=== PATIENT | male | born 1960 | race Caucasian/White ===

== ENCOUNTER 2017-09-29 18:42 | Inpatient (IN) | payer BC ==
[~2017-09-29] VITALS: Ht 172.7 cm; Wt 80.6 kg
[2017-09-29] VITALS (10 sets, daily range): BP systolic 119–192; BP diastolic 72–94; PULSE 102–120; RESP 18–24; TEMP 101.2–103.1; O2SAT 92–98
[~2017-09-29 18:42] MED LIST: AEROMIS4 INH; ALBU8I INH; BENZ100 PO; GUAI1LIQ PO; LEVA750T9 PO; PRED1TAB PO; ZITH250T PO
--- NOTE | 2017-09-29 19:31 | PD ---
HPI Chief Complaint: Respiratory Symptoms Time Seen by Provider: 19:25 Travel History International Travel<30 days: No Contact w/Intl Traveler<30days: No Traveled to known affect area: No History of Present Illness HPI The patient is a 56-year-old male who has had a fever and a cough for 24 hours. He went to an urgent care center and they got an x-ray and stated it was pneumonia and he was told to go the emergency department. The reason he was told to go the emergency department was because his oxygenation was "going up and down". He denies any chest pain and has slight shortness of breath. Despite having insurance, he has no primary care physician. He does smoke one pack a day. According to the , the patient was confused earlier today, possibly delirious. PFSH Past Medical History Cardiac Catheterization: Yes Cardiovascular Problems: Yes ([place]) High Cholesterol: Yes Chest Pain: Yes Diminished Hearing: No Hypertension: Yes (takes no meds) Immunizations Current: Yes Myocardial Infarction: Yes (2010-ANGIOPLASTY) Sleep Apnea: Yes Social History Alcohol Use: Yes (VERY RARE) Tobacco Use: Yes (CIGARETTES, 1 PPD X 34 YEARS) Substance Use: No Allergies-Medications (Allergen,Severity, Reaction): Coded Allergies: No Known Allergies (Verified Adverse Reaction, Unknown, 09/29/17) Reported Meds & Prescriptions Reported Meds & Active Scripts Active Review of Systems Except as stated in HPI: all other systems reviewed are Neg Physical Exam Narrative GENERAL: The patient is alert, oriented 3 in slight respiratory distress. His temperature is 102.7 with heart rate of 1 awake and respirations of 24 and oximetry 95% on room air. When I see the patient he has 90% room air oximetry. SKIN: Focused skin assessment warm/dry. HEAD: Atraumatic. Normocephalic. EYES: Pupils equal and round. No scleral icterus. No injection or drainage. ENT: No nasal bleeding or discharge. Mucous membranes pink and moist. NECK: Trachea midline. No JVD. CARDIOVASCULAR: Regular rate and rhythm. No murmur appreciated. RESPIRATORY: No accessory muscle use. Diminished breath sounds are present bilaterally and a few rhonchi on expiration are present. Breath sounds equal bilaterally. GASTROINTESTINAL: Abdomen soft, non-tender, nondistended. Hepatic and splenic margins not palpable. MUSCULOSKELETAL: No obvious deformities. No clubbing. No cyanosis. No edema. NEUROLOGICAL: Awake and alert. No obvious cranial nerve deficits. Motor grossly within normal limits. Normal speech. PSYCHIATRIC: Appropriate mood and affect; insight and judgment normal. Data Data Last Documented VS Vital Signs Date Time Temp Pulse Resp B/P (MAP) Pulse Ox O2 Delivery O2 Flow Rate FiO2 09/29/17 20:46 113 20 191/94 (126) 98 Nasal Cannula 2.00 09/29/17 20:36 103.1 Orders Orders Sepsis Workup Initiated (09/29/17 ) Electrocardiogram (09/29/17 19:31) Complete Blood Count With Diff (09/29/17 19:31) Comprehensive Metabolic Panel (09/29/17 19:31) Lactic Acid Sepsis Protocol (09/29/17:31) Urinalysis - C+S If Indicated (09/29/17:31) Blood Culture (09/29/17:31) Chest, Pa & Lat (09/29/17:31) Arterial Blood Gas (Abg) (09/29/17:31) Blood Glucose (09/29/17:31) Ecg Monitoring (09/29/17:31) Iv Access Insert/Monitor (09/29/17:31) Oximetry (09/29/17:31) Oxygen Administration (09/29/17:31) Influenzae A/B Antigen (09/29/17 20:15) Acetaminophen (Tylenol) (09/29/17 20:30) Sodium Chlor 0.9% 1000 Ml Inj (Ns 1000 M (09/29/17 20:45) Ceftriaxone Inj (Rocephin Inj) (09/29/17 21:00) Azithromycin Inj (Zithromax Inj) (09/29/17 21:00) Labs Laboratory Tests Test 09/29/17 19:30 09/29/17 19:55 09/29/17 20:16 White Blood Count 9.2 TH/MM3 Red Blood Count 5.33 MIL/MM3 Hemoglobin 15.3 GM/DL Hematocrit 46.3 % Mean Corpuscular Volume 86.8 FL Mean Corpuscular Hemoglobin 28.7 PG Mean Corpuscular Hemoglobin Concent 33.0 % Red Cell Distribution Width 14.3 % Platelet Count 201 TH/MM3 Mean Platelet Volume 7.8 FL Neutrophils (%) (Auto) 82.5 % Lymphocytes (%) (Auto) 6.9 % Monocytes (%) (Auto) 8.0 % Eosinophils (%) (Auto) 0.5 % Basophils (%) (Auto) 2.1 % Neutrophils # (Auto) 7.7 TH/MM3 Lymphocytes # (Auto) 0.6 TH/MM3 Monocytes # (Auto) 0.7 TH/MM3 Eosinophils # (Auto) 0.0 TH/MM3 Basophils # (Auto) 0.2 TH/MM3 CBC Comment DIFF FINAL Differential Comment Blood Urea Nitrogen 21 MG/DL Creatinine 1.10 MG/DL Random Glucose 124 MG/DL Total Protein 7.3 GM/DL Albumin 3.7 GM/DL Calcium Level 8.6 MG/DL Alkaline Phosphatase 80 U/L Aspartate Amino Transf (AST/SGOT) 21 U/L Alanine Aminotransferase (ALT/SGPT) 48 U/L Total Bilirubin 0.4 MG/DL Sodium Level 135 MEQ/L Potassium Level 3.8 MEQ/L Chloride Level 101 MEQ/L Carbon Dioxide Level 26.2 MEQ/L Anion Gap 8 MEQ/L Estimat Glomerular Filtration Rate 69 ML/MIN Lactic Acid Level 1.4 mmol/L Blood Gas Puncture Site RT RADIAL Blood Gas Patient Temperature 98.6 Blood Gas HCO3 25 mmol/L Blood Gas Base Excess 0.9 mmol/L Blood Gas Oxygen Saturation 89 % Arterial Blood pH 7.41 Arterial Blood Partial Pressure CO2 40 mmHG Arterial Blood Partial Pressure O2 67 mmHG Arterial Blood Oxygen Content 18.5 Vol % Arterial Blood Carboxyhemoglobin 3.8 % Arterial Blood Methemoglobin 1.2 % Blood Gas Hemoglobin 14.8 G/DL Oxygen Delivery Device ROOM AIR Blood Gas Inspired Oxygen 21 % Urine Color YELLOW Urine Turbidity CLEAR Urine pH 5.5 Urine Specific [place] 1.025 Urine Protein NEG mg/dL Urine Glucose (UA) NEG mg/dL Urine Ketones NEG mg/dL Urine Occult Blood MOD Urine Nitrite NEG Urine Bilirubin NEG Urine Leukocyte Esterase NEG Urine RBC 0-3 /hpf Urine Squamous Epithelial Cells 0-5 /hpf Microscopic Urinalysis Comment CATH-CULT NOT IND MDM Medical Decision Making Medical Screen Exam Complete: Yes Emergency Medical Condition: Yes Medical Record Reviewed: Yes Interpretation(s) The CBC is normal except for 83% neutrophils. The blood gases on room air show pH 7.41, CO2 40, PO2 67 with O2 sat 89% and carboxyhemoglobin 3.8%. The chest x -ray shows no acute cardiopulmonary disease. The lactic acid is 1.4. The complete metabolic profile shows a sodium of 135, BUN 21, glucose 124 but is otherwise normal. The influenza a/B antigen is negative for flu a and flu B antigen. Differential Diagnosis Sepsis, pneumonia, hypoxemia, electrolyte disorder, viral upper respiratory infection, flu syndrome Narrative Course The patient does fit the sepsis criteria tachycardia, fever, tachypnea and confusion. The lactic acid is normal. The patient is hypoxemic with an O2 sat of 89%, this is going to be readily correctable with oxygen because his carboxyhemoglobin from the smoking is 3.8. Sepsis Criteria SIRS Criteria (2 or more): Temp > 100.9 or < 96.8, Heart rate over 90, RR > 20 or PaCO2 < 32 Criteria Outcome: Meets sepsis criteria Physician Communication Physician Communication I discussed the patient with Dr. Galvin, the patient will be admitted to her. Diagnosis Primary Impression: Sepsis Additional Impressions: Hypoxemia Tobacco abuse Admitting Information Admitting Physician Requests: Admit Miquel Leigh MD Sep 29, 2017 19:30
[2017-09-29 19:59] LABS: AUTOMATED NEUTROPHIL # 7.7 TH/MM3 (1.8-7.7); BASOPHIL # 0.2 TH/MM3 (0-0.2); BASOPHIL % 2.1 % (0.0-2.0); EOSINOPHIL % 0.5 % (0.0-4.0); HEMATOCRIT 46.3 % (39.0-51.0); LYMPH % 6.9 % (9.0-44.0); LYMPHOCYTE # 0.6 TH/MM3 (1.0-4.8); MEAN CELL VOLUME 86.8 FL (80.0-100.0); MEAN CORPUSCULAR HEMOGLOBIN 28.7 PG (27.0-34.0); NEUT % 82.5 % (16.0-70.0); PLATELET COUNT 201 TH/MM3 (150-450); RED BLOOD COUNT 5.33 MIL/MM3 (4.50-5.90); RED CELL DISTRIBUTION WIDTH 14.3 % (11.6-17.2); WHITE BLOOD COUNT 9.2 TH/MM3 (4.0-11.0)
[2017-09-29 20:00] LABS: HEMO FLAGS DIFF FINAL
--- NOTE | 2017-09-29 20:01 | RADRPT ---
EXAM DATE/TIME: 09/29/2017 19:40 [facility] COMPARISON: CHEST PA & LAT, July 08, 2015, 10:32. INDICATIONS : Cough, chest congestion for 1 week MEDICAL HISTORY : None. SURGICAL HISTORY : None. ENCOUNTER: Initial ACUITY: 1 week PAIN SCORE: 3/10 LOCATION: Bilateral chest FINDINGS: PA and lateral views of the chest demonstrate the lungs to be symmetrically aerated without evidence of mass, infiltrate or effusion. The cardiomediastinal contours are unremarkable. Osseous structure s are intact. CONCLUSION: No acute cardiopulmonary disease. Felipe Nathan MD on September 29, 2017 at 19:58 Board Certified Radiologist. This report was verified electronically.
[2017-09-29 20:09] LABS: CHLORIDE 101 MEQ/L (98-107); POTASSIUM 3.8 MEQ/L (3.5-5.1); SODIUM (NA) 135 MEQ/L (136-145)
[2017-09-29 20:12] LABS: BLOOD GAS BASE EXCESS 0.9 mmol/L (-2-2); BLOOD GAS CARBOXYHEMOGLOBIN 3.8 % (0-4); BLOOD GAS HCO3 25 mmol/L (22-26); BLOOD GAS METHEMOGLOBIN 1.2 % (0-2); BLOOD GAS O2 HGB SATURATION 89 % (90-100); BLOOD GAS OXYGEN CONTENT 18.5 Vol % (12.0-20.0); BLOOD GAS PCO2 40 mmHG (38-42); BLOOD GAS PO2 67 mmHG (61-120); BLOOD GAS TOTAL HGB 14.8 G/DL (12.0-16.0); TEMP CORR TO 98.6
[2017-09-29 20:13] LABS: ANION GAP 8 MEQ/L (5-15); BICARBONATE 26.2 MEQ/L (21.0-32.0); BLOOD UREA NITROGEN 21 MG/DL (7-18)
[2017-09-29 20:13] LABS: CRITICAL VALUE YES; DRAW SITE RT RADIAL; FIO2 21 %; NUMBER OF ARTERIAL PUNCTURES 1; OXYGEN DEVICE ROOM AIR; STAT YES; ULNAR PULSE PRESENT
[2017-09-29 20:16] LABS: ALT (GPT) 48 U/L (12-78); AST (GOT) 21 U/L (15-37); GLOMERULAR FILTRATION RATE 69 ML/MIN (>89)
[2017-09-29 20:18] LABS: TOTAL BILIRUBIN ADULT 0.4 MG/DL (0.2-1.0)
[2017-09-29 20:19] LABS: ALKALINE PHOSPHATASE 80 U/L (45-117)
[2017-09-29 20:20] LABS: BLOOD, URINE MOD (NEG); GLUCOSE,URINE NEG (NEG); KETONE, URINE NEG (NEG); NITRITE,URINE NEG (NEG); PH, URINE 5.5 (5.0-8.5)
[2017-09-29 20:28] LABS: URINE COLOR YELLOW (YELLW/STRAW)
[2017-09-29 20:29] LABS: COMMENT (UR) CATH-CULT NOT IND; CULTURE IF INDICATED CATH CULTURE NOT IND; RBC, URINE 0-3 /hpf (0-3); SQUAMOUS EPITHELIAL CELL URINE 0-5 /hpf (0-5)
[2017-09-29] MEDS ORDERED: ACETAMINOPHEN 500 MG CPLT PO ONE (20:30)
[2017-09-29] MEDS: SODIUM CHLOR 0.9% 1000 ML INJ 1,000 ML IV SCH ×3 (20:41→21:49)
[2017-09-29] MEDS ORDERED: RESP: ALBUTEROL 2.5 MG/IPRATROPIUM 0.5 MG NEB (PRN) INH (21:00)
[2017-09-29] MEDS ORDERED: SODIUM CHLORIDE 0.9% FLUSH 10 ML FLUSH IV FLUSH PRN (21:00)
[2017-09-29] MEDS ORDERED: cefTRIAXone INJ 1,000 MG in SODIUM CHLORIDE 0.9% INJ 100 ML IV ONE (21:00)
[2017-09-29] MEDS ORDERED: AZITHROMYCIN INJ 500 MG in SODIUM CHLOR 0.9% 250 ML INJ 250 ML IV ONE (21:00)
[2017-09-29] MEDS: SODIUM CHLORIDE 0.9% FLUSH 10 ML FLUSH IV FLUSH SCH (21:21)
[2017-09-29] MEDS: HEPARIN SODIUM - SQ 10,000 UNITS/ML VIAL SQ SCH (21:39)
[2017-09-30] VITALS (21 sets, daily range): BP systolic 126–184; BP diastolic 72–89; PULSE 88–106; RESP 16–25; TEMP 98–102.3; O2SAT 93–97
[2017-09-30] MEDS: ACETAMINOPHEN 500 MG CPLT PO PRN ×2 (02:24→09:21)
[2017-09-30] MEDS: HEPARIN SODIUM - SQ 10,000 UNITS/ML VIAL SQ SCH ×3 (05:01→22:03)
[2017-09-30 06:13] LABS: AUTOMATED NEUTROPHIL # 7.4 TH/MM3 (1.8-7.7); BASOPHIL # 0.2 TH/MM3 (0-0.2); BASOPHIL % 1.6 % (0.0-2.0); EOSINOPHIL % 0.1 % (0.0-4.0); HEMATOCRIT 39.5 % (39.0-51.0); LYMPHOCYTE # 1.5 TH/MM3 (1.0-4.8); MEAN CELL VOLUME 84.6 FL (80.0-100.0); MEAN CORPUSCULAR HGB CONC 34.2 % (32.0-36.0); MONO % 6.4 % (0.0-8.0); NEUT % 76.9 % (16.0-70.0); PLATELET COUNT 154 TH/MM3 (150-450); RED BLOOD COUNT 4.67 MIL/MM3 (4.50-5.90); RED CELL DISTRIBUTION WIDTH 13.7 % (11.6-17.2); WHITE BLOOD COUNT 9.7 TH/MM3 (4.0-11.0)
[2017-09-30 06:17] LABS: HEMO FLAGS DIFF FINAL
[2017-09-30 06:23] LABS: POTASSIUM 3.7 MEQ/L (3.5-5.1)
[2017-09-30 06:26] LABS: BICARBONATE 25.7 MEQ/L (21.0-32.0)
[2017-09-30] MEDS ORDERED: RESP: ALBUTEROL 2.5 MG/IPRATROPIUM 0.5 MG NEB (PRN) INH (07:15)
[2017-09-30] MEDS: AZITHROMYCIN 250 MG TAB PO SCH (07:48)
[2017-09-30] MEDS: RESP: ALBUTEROL 2.5 MG/IPRATROPIUM 0.5 MG NEB (SCH) NEB ×4 (07:51→19:30)
[2017-09-30] MEDS ORDERED: ONDANSETRON HCL 4 MG/2 ML VIAL IV PUSH PRN (08:15)
--- NOTE | 2017-09-30 08:53 | HHI.HP ---
[facility] No Primary Care Physician Admission Diagnosis sepsis, hypoxemia, tobacco abuse Diagnoses: (1) Systemic inflammatory response syndrome Diagnosis: Principal (2) Febrile illness Diagnosis: Principal (3) Hypoxemia Diagnosis: Principal (4) Tobacco abuse Diagnosis: Secondary Chief Complaint: Shortness of breath and cough Travel History International Travel<30 Days: No Contact w/Intl Traveler <30 Da: [place] Country Traveled to: [place] Traveled to Known Affected Are: No Sepsis Criteria SIRS Criteria (2 or more): Temp > 100.9 or < 96.8, Heart rate over 90 History of Present Illness Written by Garrett Leigh, acting as scribe for Dr. Sheffield on 09/30/17 at 08 :52. 56 year-old male with known history of noncompliance he was treatment for hypertension, hyperlipidemia, obstructive sleep apnea who presented to hospital because of shortness of breath and dyspnea. Patient states that his symptoms started on Wednesday of this week. He states that he went to [place] for 6 days and just got back on Wednesday. On Wednesday he started having a nonproductive cough which progressively got worse. He was having increased dyspnea on exertion, shortness of breath. He did notice some chills but did not indicate that he had any fever. The patient went to an urgent care center for evaluation and was told that he had a chest x-ray which showed pneumonia and hypoxia so they referred him to the ER for evaluation. Patient had workup done in the emergency department with chest x-ray which did not indicate any acute abnormality. Patient did have febrile illness with temperature 102.7. Patient has had a MAXIMUM TEMPERATURE of the 103.1. On presentation the patient did have mild hypoxia with O2 saturation of 92%. Arterial blood gas was performed which did indicate O2 saturation of 89%. Patient did have findings to indicate systemic inflammatory response syndrome and hypoxia and is recommended patient be admitted for further evaluation and management. The patient does continue to smoke one pack a cigarettes a day since he was 15 years old. He is supposed to use a CPAP machine however he does not use it because of the difficulty of operation. He does have history of hypertension, hyperlipidemia and myocardial infarction in which she does not take any medications for. 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 Denies any alcohol or illicit drugs Physical Exam Vital Signs Vital Signs Date Time Temp Pulse Resp B/P (MAP) Pulse Ox O2 Delivery O2 Flow Rate FiO2 09/30/17 08:30 104 20 94 09/30/17 08:15 102 23 93 09/30/17 08:00 101.7 100 25 172/86 (114) 93 09/30/17 08:00 106 09/30/17 07:52 95 Nasal Cannula 2.00 09/30/17 06:00 91 09/30/17 05:00 92 18 165/75 (105) 96 09/30/17 04:00 92 09/30/17 04:00 98.0 96 19 137/76 (96) 95 09/30/17 03:26 102 16 162/73 (102) 96 09/30/17 02:00 104 09/30/17 02:00 102.3 104 24 184/89 (120) 96 09/30/17 02:00 104 24 184/89 (120) 96 09/30/17 01:00 104 24 160/88 (112) 96 09/30/17 00:00 100.2 96 19 138/76 (96) 96 09/30/17 00:00 96 19 138/76 (96) 96 09/30/17 00:00 106 09/29/17 23:00 102 21 119/72 (88) 95 09/29/17 23:00 104 09/29/17 22:30 103.0 104 22 155/77 (103) 96 09/29/17 22:23 09/29/17 22:02 110 18 191/87 (121) 98 Nasal Cannula 2.00 09/29/17 21:18 101.2 110 18 167/87 (113) 98 Nasal Cannula 2.00 09/29/17 20:46 101.6 113 20 191/94 (126) 98 Nasal Cannula 2.00 09/29/17 20:46 98 Nasal Cannula 2.00 09/29/17 20:36 103.1 118 20 94 Nasal Cannula 2.00 09/29/17 20:23 95 Nasal Cannula 2.00 09/29/17 20:15 108 20 192/87 (122) 92 Nasal Cannula 2.00 09/29/17 19:30 102.9 120 20 178/88 (118) 93 Room Air 09/29/17 19:30 20 93 Room Air 09/29/17 19:30 20 93 Room Air 09/29/17 19:25 102.7 108 24 180/88 (118) 95 09/29/17 18:47 102.7 108 24 180/88 (118) 95 Room Air Physical Exam GENERAL: Well-developed, well-nourished, in no acute distress. alert and orientated HEENT: Head is normocephalic without any lesions or masses noted. Facial features are symmetric. Eyes: Pupils equal round reactive to light. Extraocular muscles are intact. Conjunctivae were clear. Oropharyngeal: Pharynx without any erythema edema. Tongue is midline without deviation. Buccal mucosa is moist without any masses or lesions NECK: Supple without any masses. Trachea midline no deviation. No JVD, no bruits are appreciated CARDIAC: Regular rhythm, regular rate. S1/S2 are heard. No murmurs gallops or rubs. LUNGS: Clear to auscultation bilaterally. Wheeze noted throughout all lung fischer. No rhonchi or rales. No use of accessory muscles on inspiration or expiration. ABDOMEN: Soft, nontender. Nondistended. Bowel sounds heard in all 4 quadrants. No organomegaly or masses. Negative rebound, negative guarding EXTREMITIES: No edema, pulses are equal bilaterally. No cyanosis or clubbing NEUROLOGY: Mood and affect appear appropriate. Cranial nerves II through XII grossly intact. Muscle strength 5/5 in upper and lower extremities bilaterally. Deep tendon reflexes are 2+ in upper and lower extremities bilaterally. Laboratory Laboratory Tests Test 09/29/17 19:30 09/29/17 19:55 09/29/17 20:16 09/30/17 05:45 White Blood Count 9.2 9.7 Red Blood Count 5.33 4.67 Hemoglobin 15.3 13.5 Hematocrit 46.3 39.5 Mean Corpuscular Volume 86.8 84.6 Mean Corpuscular Hemoglobin 28.7 29.0 Mean Corpuscular Hemoglobin Concent 33.0 34.2 Red Cell Distribution Width 14.3 13.7 Platelet Count 201 154 Mean Platelet Volume 7.8 7.7 Neutrophils (%) (Auto) 82.5 76.9 Lymphocytes (%) (Auto) 6.9 15.0 Monocytes (%) (Auto) 8.0 6.4 Eosinophils (%) (Auto) 0.5 0.1 Basophils (%) (Auto) 2.1 1.6 Neutrophils # (Auto) 7.7 7.4 Lymphocytes # (Auto) 0.6 1.5 Monocytes # (Auto) 0.7 0.6 Eosinophils # (Auto) 0.0 0.0 Basophils # (Auto) 0.2 0.2 CBC Comment DIFF FINAL DIFF FINAL Differential Comment Blood Urea Nitrogen 21 11 Creatinine 1.10 0.70 Random Glucose 124 107 Total Protein 7.3 Albumin 3.7 Calcium Level 8.6 7.8 Alkaline Phosphatase 80 Aspartate Amino Transf (AST/SGOT) 21 Alanine Aminotransferase (ALT/SGPT) 48 Total Bilirubin 0.4 Sodium Level 135 136 Potassium Level 3.8 3.7 Chloride Level 101 103 Carbon Dioxide Level 26.2 25.7 Anion Gap 8 7 Estimat Glomerular Filtration Rate 69 117 Lactic Acid Level 1.4 Blood Gas Puncture Site RT RADIAL Blood Gas Patient Temperature 98.6 Blood Gas HCO3 25 Blood Gas Base Excess 0.9 Blood Gas Oxygen Saturation 89 Arterial Blood pH 7.41 Arterial Blood Partial Pressure CO2 40 Arterial Blood Partial Pressure O2 67 Arterial Blood Oxygen Content 18.5 Arterial Blood Carboxyhemoglobin 3.8 Arterial Blood Methemoglobin 1.2 Blood Gas Hemoglobin 14.8 Oxygen Delivery Device ROOM AIR Blood Gas Inspired Oxygen 21 Urine Color YELLOW Urine Turbidity CLEAR Urine pH 5.5 Urine Specific [place] 1.025 Urine Protein NEG Urine Glucose (UA) NEG Urine Ketones NEG Urine Occult Blood MOD Urine Nitrite NEG Urine Bilirubin NEG Urine Leukocyte Esterase NEG Urine RBC 0-3 Urine Squamous Epithelial Cells 0-5 Microscopic Urinalysis Comment CATH-CULT NOT IND Date/Time Source Procedure Growth Status 09/29/17 19:47 Blood Peripheral Aerobic Blood Culture Pending Received 09/29/17 19:47 Blood Peripheral Anaerobic Blood Culture Pending Received 09/29/17 20:22 Nasal Washing Influenza Types A,B Antigen (ARELI) - Final NEGATIVE FOR FLU A AND B ANTIGEN.... Complete Result Diagram: 09/30/17 0545 09/30/[address] Angiography 09/30/17 0000 Signed Impressions: Service Date/Time: September 09:22 - CONCLUSION: 1. The study is negative for pulmonary embolism. 2. Multifocal opacities in the left lung including a 5 mm nodule and several enlarged middle mediastinal lymph nodes is nonspecific with regard to infectious or malignant origin. 3. 2.7 cm mass right thyroid. Felipe Nathan MD Chest X-Ray 09/29/17 193 Signed Impressions: Service Date/Time: Friday, September 29, 2017 19:40 - CONCLUSION: No acute cardiopulmonary disease. Felipe Nathan MD Septic Shock Reassessment Heart: Other (sinus tachycardia) Lungs: Other (wheeze noted throughout) Skin: Warm, [place] Peripheral Pulses: Bounding Right Radial Bounding Left Radial Capillary Refill: Brisk, <2 seconds Caprini VTE Risk Assessment Caprini VTE Risk Assessment: Mod/High Risk (score >= 2) Caprini Risk Assessment Model Point Value = 1 Point Value = 2 Point Value = 3 Point Value = 5 Age 41-60 Minor surgery BMI > 25 kg/m2 Swollen legs Varicose veins or History of unexplained or recurrent spontaneous Oral contraceptives or hormone replacement Sepsis (< 1 month) Serious lung disease, including pneumonia (< 1 month) Abnormal pulmonary function Acute myocardial infarction Congestive heart failure (< 1 month) History of inflammatory bowel disease Medical patient at bed rest Age 61-74 Arthroscopic surgery Major open surgery (> 45 min) Laparoscopic surgery (> 45 min) Malignancy Confined to bed (> 72 hours) Immobilizing plaster cast Central venous access Age >= 75 History of VTE Family history of VTE Factor V Leiden Prothrombin [id number] Lupus anticoagulant Anticardiolipin antibodies Elevated serum homocysteine Heparin-induced thrombocytopenia Other congenital or acquired thrombophilia Stroke (< 1 month) Elective arthroplasty Hip, pelvis, or leg fracture Acute spinal cord injury (< 1 month) Prophylaxis Regimen Total Risk Factor Score Risk Level Prophylaxis Regimen 0-1 Low Early ambulation 2 Moderate Order ONE of the following: *Sequential Compression Device (SCD) *Heparin 5000 units SQ BID 3-4 Higher Order ONE of the following medications: *Heparin 5000 units SQ TID *Enoxaparin/Lovenox 40 mg SQ daily (WT < 150 kg, CrCl > 30 mL/min) *Enoxaparin/Lovenox 30 mg SQ daily (WT < 150 kg, CrCl > 10-29 mL/min) *Enoxaparin/Lovenox 30 mg SQ BID (WT < 150 kg, CrCl > 30 mL/min) AND/OR *Sequential Compression Device (SCD) 5 or more Highest Order ONE of the following medications: *Heparin 5000 units SQ TID (Preferred with Epidurals) *Enoxaparin/Lovenox 40 mg SQ daily (WT < 150 kg, CrCl > 30 mL/min) *Enoxaparin/Lovenox 30 mg SQ daily (WT < 150 kg, CrCl > 10-29 mL/min) *Enoxaparin/Lovenox 30 mg SQ BID (WT < 150 kg, CrCl > 30 mL/min) AND *Sequential Compression Device (SCD) Assessment and Plan Problem List: (1) COPD with exacerbation ICD Code: J44.1 - Chronic obstructive pulmonary disease with (acute) exacerbation (2) Bronchitis ICD Code: J40 - Bronchitis, not specified as acute or chronic (3) Systemic inflammatory response syndrome ICD Code: R65.10 - Systemic inflammatory response syndrome (SIRS) of non- infectious origin without acute organ dysfunction Assessment and Plan 56-year-old man with Systemic inflammatory response syndrome Patient meets criteria with febrile illness, sinus tachycardia, no infectious source has been identified Likely secondary to chronic obstructive pulmonary disease Chest x-ray does not indicate any acute abnormality CT scan of the chest showed multifocal opacity's in the left lung and 5 mm nodule with several enlarged middle mediastinal lymph nodes. Will need outpatient follow-up when stabilized Influenza testing was negative Blood cultures are negative for 1 day D-dimer was positive, pulmonary angiogram does not indicate any pulmonary emboli Continue Rocephin and Zithromax Hypoxia, which is multifactorial with likely vital upper respiratory infection, chronic obstructive pulmonary disease, chronic tobacco use Continue O2 supplementation maintain O2 sats greater 92% Duo nebs every 4 hours and every 2 hours as needed Start Solu-Medrol 40 mg IV every 6 hours Patient will likely need outpatient pulmonary function test when not an acute exacerbation Robitussin-AC as needed Febrile illness Thus far workup does not indicate any acute bacterial infection Awaiting further studies with sputum culture, pneumococcal testing, Legionella testing Hypertension, untreated due to noncompliance Start lisinopril 5 mg daily Vasotec and clonidine as needed History of myocardial infarction, hyperlipidemia, untreated Start aspirin Obtain lipid panel DVT prevention Subcutaneous heparin This note was transcribed by misty Leigh. I, Dr. Daryl Sheffield personally performed the history, physical exam, and medical decision making; and confirmed the accuracy of the information in the transcribed note. Authenticated by Dr. Dayrl Sheffield on 09/30/17 at 08:52. Code Status Full code Discussed Condition With Patient Physician Certification 2 Midnight Certification Type: Admission for Inpatient Services Order for Inpatient Services The services are ordered in accordance with Medicare regulations or non- Medicare payer requirements, as applicable. In the case of services not specified as inpatient-only, they are appropriately provided as inpatient services in accordance with the 2-midnight benchmark. Estimated LOS (days): 3 days is the estimated time the patient will need to remain in the hospital, assuming treatment plan goals are met and no additional complications. Post-Hospital Plan: Not yet determined Garrett Leigh Sep 30, 2017 08:53 Daryl Sheffield MD Sep 30, 2017 08:53
[2017-09-30] MEDS: SODIUM CHLORIDE 0.9% FLUSH 10 ML FLUSH IV FLUSH SCH ×2 (09:00→21:00)
[2017-09-30] MEDS: SODIUM CHLOR 0.9% 1000 ML INJ 1,000 ML IV SCH ×3 (09:21→22:05)
[2017-09-30] MEDS ORDERED: IOHEXOL 350 MG/ML 10 ML VIAL (for RAD DIAG) IVCONTRAST ONE (09:39)
--- NOTE | 2017-09-30 09:51 | RADRPT ---
EXAM DATE/TIME: 09/30/2017 09:22 [facility] COMPARISON: No previous studies available for comparison. INDICATIONS : Shortness of breath with hypoxia and tachycardia. IV CONTRAST: 75 cc Omnipaque 350 (iohexol) IV RADIATION DOSE: 13.27 CTDIvol (mGy) MEDICAL HISTORY : Cardiovascular disease. Hypertension. SURGICAL HISTORY : None. ENCOUNTER: Initial ACUITY: 1 day PAIN SCALE: 0/10 LOCATION: chest TECHNIQUE: Volumetric scanning of the chest was performed using a pulmonary embolism protocol MIP images were re constructed. Using automated exposure control and adjustment of the mA and/or kV according to patien t size, radiation dose was kept as low as reasonably achievable to obtain optimal diagnostic quality images. DICOM format image data is available electronically for review and comparison. Follow-up recommendations for detected pulmonary nodules are based at a minimum on nodule size and pa tient risk factors according to Fleischner Society Guidelines. FINDINGS: PULMONARY ARTERIES: No filling defects are seen in the pulmonary arteries through the segmental level. LUNGS: There are multiple opacities in the left lung, the largest of which is located posterior medial pleur al surface measuring 1.3 cm (image #28). A 2nd area of opacity adjacent to the left anterior superio r mediastinum interface does contain some air bronchograms. There is a 5 mm nodule in the lower late ral left lung (image #59). No nodules or infiltrates seen in the right lung. PLEURAE: There is no pleural thickening or pleural effusion. MEDIASTINUM: Multiple prominent mediastinal nodes including lateral AP window (1.6 cm) and subcarinal region (1.8 cm). MISCELLANEOUS: Small hiatus hernia. 2.7 cm low-density mass in the right thyroid. CONCLUSION: 1. The study is negative for pulmonary embolism. 2. Multifocal opacities in the left lung including a 5 mm nodule and several enlarged middle mediasti nal lymph nodes is nonspecific with regard to infectious or malignant origin. 3. 2.7 cm mass right thyroid. Felipe Nathan MD on September 30, 2017 at 9:44 Board Certified Radiologist. This report was verified electronically.
--- NOTE | 2017-09-30 10:33 | EKG ---
Date Performed: 09/29/2017 Time Performed: 19:52:45 PTAGE: 56 years EKG: SINUS TACHYCARDIA WITH SHORT SD INTERVAL POSSIBLE LEFT ATRIAL ENLARGEMENT INCOMPLETE RIGHT BUNDLE BRANCH BLOCK NONSPECIFIC T-WAVE ABNORMALITY ABNORMAL RHYTHM ECG PREVIOUS TRACING : 12/12/2010 05.40 DOCTOR: Bienvenido Marcus Interpretating Date/Time 09/30/2017 10:32:22
[2017-09-30] MEDS ORDERED: cloNIDine HCL 0.1 MG TAB PO PRN (10:45)
[2017-09-30] MEDS ORDERED: ENALAPRILAT 1.25 MG/ML VIAL IV PUSH PRN (10:45)
[2017-09-30] MEDS: LISINOPRIL 5 MG TAB PO SCH (11:00)
[2017-09-30] MEDS ORDERED: IBUPROFEN 600 MG TAB PO PRN (13:00)
[2017-09-30] MEDS: NICOTINE 21 MG/24 HR PATCH T-DERMAL SCH (13:28)
[2017-09-30] MEDS: methylPREDNISolone SOD SUCC 40 MG/1 ML VIAL IV PUSH SCH ×2 (13:30→17:05)
[2017-09-30] MEDS ORDERED: guaiFENesin/CODEINE SYRUP 200 MG/20 MG/10 ML CUP PO PRN (13:45)
[2017-09-30] MEDS ORDERED: cefTRIAXone INJ 1,000 MG in SODIUM CHLORIDE 0.9% INJ 100 ML IV SCH (21:00)
[2017-10-01] VITALS (8 sets, daily range): BP systolic 98–161; BP diastolic 64–87; PULSE 78–106; RESP 14–29; TEMP 97.1–98.4; O2SAT 93–96
[2017-10-01] MEDS: SODIUM CHLOR 0.9% 1000 ML INJ 1,000 ML IV SCH (00:35)
[2017-10-01] MEDS: methylPREDNISolone SOD SUCC 40 MG/1 ML VIAL IV PUSH SCH ×3 (05:50→12:52)
[2017-10-01] MEDS: HEPARIN SODIUM - SQ 10,000 UNITS/ML VIAL SQ SCH (05:50)
[2017-10-01] MEDS: RESP: ALBUTEROL 2.5 MG/IPRATROPIUM 0.5 MG NEB (SCH) NEB ×2 (07:38→11:19)
[2017-10-01 08:17] LABS: HDL CHOLESTEROL 34.7 MG/DL (40.0-60.0)
[2017-10-01] MEDS ORDERED: REMOVE OLD PATCH T-DERMAL SCH (09:00)
[2017-10-01] MEDS ORDERED: ASPIRIN EC 81 MG TABEC PO SCH (09:00)
[2017-10-01] MEDS: LISINOPRIL 5 MG TAB PO SCH (09:50)
[2017-10-01] MEDS: NICOTINE 21 MG/24 HR PATCH T-DERMAL SCH (09:50)
[2017-10-01] MEDS: AZITHROMYCIN 250 MG TAB PO SCH (09:54)
[2017-10-01] MEDS: SODIUM CHLORIDE 0.9% FLUSH 10 ML FLUSH IV FLUSH SCH (09:59)
[2017-10-01] MEDS ORDERED: INFLUENZA VIRUS VACCINE (QUADRIVALENT) 0.5 ML SYR IM ONE (10:00)
[2017-10-01] MEDS ORDERED: PNEUMOCOCCAL POLYVALENT INJ 25 MCG/0.5 ML SYR IM ONE (10:00)
--- NOTE | 2017-10-01 13:02 | HHI.PR ---
Subjective Remarks Follow-up febrile episode/SIRS/COPD exacerbation 10/01/17-patient seen and examined, reports significant improvement or shortness of breath and currently afebrile Objective Vitals Vital Signs Date Time Temp Pulse Resp B/P (MAP) Pulse Ox O2 Delivery O2 Flow Rate FiO2 10/01/17 12:00 98.3 94 29 161/85 (110) 95 10/01/17 10:00 100 20 145/76 (99) 94 10/01/17 08:15 98.4 92 18 157/87 (110) 94 10/01/17 08:00 106 10/01/17 07:38 93 Nasal Cannula 2.00 10/01/17 04:00 97.3 90 15 136/65 (88) 96 10/01/17 03:22 100 23 160/71 (100) 95 10/01/17 00:00 97.1 78 14 98/64 (75) 96 09/30/17 20:00 98.8 96 22 128/79 (95) 96 09/30/17 20:00 96 09/30/17 19:32 95 Nasal Cannula 2.00 09/30/17 16:00 98.8 88 19 127/76 (93) 97 I/O 09/30/17 09/30/17 09/30/17 10/01/17 10/01/17 10/01/17 07:00 15:00 23:00 07:00 15:00 23:00 Intake Total 460 ml 1281 ml 1918 ml 1208 ml 613 ml Output Total 850 ml 1700 ml 1800 ml Balance -390 ml 1281 ml 218 ml -592 ml 613 ml Intake Oral 460 ml IV Total 1281 ml 1918 ml 1208 ml 613 ml Output Urine Total 850 ml 1700 ml 1800 ml # Bowel Movements 0 Result Diagram: 09/30/17 0545 09/30/17 [address] Angiography 09/30/17 0000 Signed Impressions: Service Date/Time: September 09:22 - CONCLUSION: 1. The study is negative for pulmonary embolism. 2. Multifocal opacities in the left lung including a 5 mm nodule and several enlarged middle mediastinal lymph nodes is nonspecific with regard to infectious or malignant origin. 3. 2.7 cm mass right thyroid. Felipe Nathan MD Chest X-Ray 09/29/171930 Signed Impressions: Service Date/Time: Friday, September 29, 2017 19:40 - CONCLUSION: No acute cardiopulmonary disease. Felipe Nathan MD Objective Remarks GENERAL: NAD SKIN: Warm and dry. HEAD: Normocephalic. EYES: No scleral icterus. No injection or drainage. NECK: Supple, trachea midline. No JVD or lymphadenopathy. CARDIOVASCULAR: Regular rate and rhythm without murmurs, gallops, or rubs. RESPIRATORY: Breath sounds equal bilaterally. No accessory muscle use. GASTROINTESTINAL: Abdomen soft, non-tender, nondistended. MUSCULOSKELETAL: No cyanosis, or edema. BACK: Nontender without obvious deformity. No CVA tenderness. Procedures none A/P Problem List: (1) COPD with exacerbation ICD Code: J44.1 - Chronic obstructive pulmonary disease with (acute) exacerbation (2) Bronchitis ICD Code: J40 - Bronchitis, not specified as acute or chronic (3) Systemic inflammatory response syndrome ICD Code: R65.10 - Systemic inflammatory response syndrome (SIRS) of non- infectious origin without acute organ dysfunction Assessment and Plan 56-year-old man with Systemic inflammatory response syndrome-resolved Patient meets criteria with febrile illness, sinus tachycardia, no infectious source has been identified Likely secondary to chronic obstructive pulmonary disease Chest x-ray does not indicate any acute abnormality CT scan of the chest showed multifocal opacity's in the left lung and 5 mm nodule with several enlarged middle mediastinal lymph nodes. Will need outpatient follow-up when stabilized Influenza testing was negative Blood cultures are negative for 2 day D-dimer was positive, pulmonary angiogram does not indicate any pulmonary emboli Continue Rocephin and Zithromax, will discontinued on azithromycin by mouth Hypoxia, which is multifactorial with likely vital upper respiratory infection, chronic obstructive pulmonary disease, chronic tobacco use Continue O2 supplementation maintain O2 sats greater 92% Duo nebs every 4 hours and every 2 hours as needed Currently on Solu-Medrol 40 mg IV every 6 hours, will switch to by mouth prednisone taper Patient will likely need outpatient pulmonary function test when not an acute exacerbation Robitussin-AC as needed Febrile illness-resolved Thus far workup does not indicate any acute bacterial infection Hypertension, untreated due to noncompliance Continue lisinopril 5 mg daily Vasotec and clonidine as needed History of myocardial infarction, hyperlipidemia, untreated Continue aspirin, LDL 187 therefore will start by mouth statin DVT prevention Subcutaneous heparin Discharge Planning Discharge patient to home Condition on discharge: Improved Regular Diet as tolerated Ad Noemi activity Rx written:see EMR Follow-up with primary care physician in 1 week Daryl Sheffield MD Oct 01, 2017 13:02
[2017-10-01] MEDS ORDERED: LISI-519 PO (13:08)
[2017-10-01] MEDS ORDERED: IPRA17I INH (13:08)
[2017-10-01] MEDS ORDERED: SPIRCAP INH (13:08)
[2017-10-01] MEDS ORDERED: VENTAER INH (13:08)
[2017-10-01] MEDS ORDERED: LIPI10TA PO (13:08)
[2017-10-01] MEDS ORDERED: MEDR4PAK PO (13:08)
[2017-10-01] MEDS ORDERED: ASPI81TA23 PO (13:08)
[2017-10-01] MEDS ORDERED: guaiFEN-COD 200-20 MG/10ML LIQ PO (13:08)
[2017-10-01] MEDS ORDERED: SYMB160A INH (13:08)
[2017-10-01] MEDS ORDERED: AZIT250T3 PO (13:08)
== END 2017-10-01 13:57 | disposition home or self-care (01) | DRG 191 ==
LOC: PHED 18:42 → INTOOBSV 20:53 → PHEDA 20:53 → PHICU 22:17 → OBSVTOIN 09-30 14:54
PROVIDERS: ADMIT Hospitalist; ATTEND Hospitalist
DX: J44.1 Chronic obstructive pulmonary disease with (acute) exacerbation (principal); R65.10 Systemic inflammatory response syndrome (SIRS) of non-infectious origin without acute organ dysfunction; I10 Essential (primary) hypertension; R09.02 Hypoxemia; J06.9 Acute upper respiratory infection, unspecified; E78.5 Hyperlipidemia, unspecified; G47.33 Obstructive sleep apnea (adult) (pediatric); F17.210 Nicotine dependence, cigarettes, uncomplicated; R00.0 Tachycardia, unspecified; R91.1 Solitary pulmonary nodule; I25.2 Old myocardial infarction; Z23 Encounter for immunization; Z91.19 Patient's noncompliance with other medical treatment and regimen
CPT/HCPCS: 36600; 71020; 71275; 80048; 80053; 80061; 81001; 82805; 83605; 85025; 85379; 87040; 87804; 90471; 90686; 90732; 93005; 94640; 94664; G0008; G0009; J0456; J0696; J1644; J2405; J2920; J7030; J7050; Q2038; Q9967